=== PATIENT | female | born 1980 | race Caucasian/White ===

== ENCOUNTER 2017-03-06 12:37 | Outpatient (CLI) | payer OTHER ==
[~2017-03-06 12:37] MED LIST: Gadobenate Dimeglumine 529 MG/1 ML (20ML VIAL) ONE
--- NOTE | 2017-03-06 14:54 | MRI ---
MRI LUMBAR SPINE WITH AND WITHOUT IV CONTRAT: INDICATION: History of fall with acute low back symptoms and radicular symptoms. History of spinal fusion in 20 05. CONTRAST: 17 cc of MultiHance was administered. COMPARISON: Radiographs of the lumbar spine dated 02/27/17. FINDINGS: There is postsurgical change in the anterior lumbar interbody fusion at L5-S1. There is postsurgica l change of a laminectomy. There is postsurgical change of a right hemilaminectomy at L5-S1. There is an asymmetric to the left broad-based disk-osteophyte complex. Loss of disk space height in add ition to the osteophyte complex induces mild to moderate bilateral neural foraminal narrowing. At L4-5, there is a broad-based bulge inducing mild central canal narrowing with mild bilateral neur al foraminal narrowing. At L3-4, there is no appreciable central canal or neural foraminal narrowing. There is a mild broad -based bulge. At L2-3, there is a mild broad-based bulge without appreciable central canal or neural foraminal raymond rowing. At L1-L2, there is no appreciable central canal or neural foraminal narrowing. At T12-L1, there is no appreciable central canal or neural foraminal narrowing. No definite abnormal enhancement is demonstrated. No acute fracture is evident. Coronal images of the sacrum appear within normal limits. SI joints are normal-appearing. IMPRESSION: 1. Postoperative lumbar spine. 2. Mild to moderate bilateral neural foraminal narrowing at L5-S1. 3. Mild bilateral neural foraminal narrowing at L4-5 due to a broad-based bulge. POS: [facility]
== END 2017-03-06 12:38 | disposition home or self-care (01) ==
LOC: SCSMRI 12:37
PROVIDERS: ATTEND Family Medicine
DX: S32.10XA Unspecified fracture of sacrum, initial encounter for closed fracture (principal); M54.10 Radiculopathy, site unspecified; M51.26 Other intervertebral disc displacement, lumbar region; Z98.1 Arthrodesis status
CPT/HCPCS: 72158; A9579

== ENCOUNTER 2017-06-09 14:32 | Outpatient (CLI) | payer OTHER ==
--- NOTE | 2017-06-09 15:57 | MRI ---
MRI OF THE ABDOMEN WITHOUT AND WITH CONTRAST: COMPARISON: None. HISTORY: Right upper quadrant abdominal pain. Hepatic lesion. TECHNIQUE: Multiplanar, multisequence MR images were obtained of the abdomen without and with IV contrast. FINDINGS: There is a well-circumscribed focus of high T2 signal in the anterior aspect of the left lobe of the liver measuring 1.2 cm in greatest dimension. After the administration of contrast, this lesion demo nstrates peripheral puddling and gradual fill-in on the delayed images consistent with a hemangioma. There is a small nonenhancing region of high T2 signal along the inferior edge of the liver and junior cent to the kidney. This may represent a small amount of fluid in Morison's pouch. The gallbladder has been removed. No biliary dilatation is seen. The kidneys, adrenal glands, splee n, and pancreas are unremarkable. No abdominal adenopathy is seen. No marrow signal abnormality is present. IMPRESSION: Hepatic hemangioma. POS: [facility]
== END 2017-06-09 14:33 | disposition home or self-care (01) ==
LOC: MRI 14:32
PROVIDERS: ATTEND Internal Medicine Gastroenterology
DX: K52.9 Noninfective gastroenteritis and colitis, unspecified (principal); K76.9 Liver disease, unspecified; R10.11 Right upper quadrant pain; D18.03 Hemangioma of intra-abdominal structures
CPT/HCPCS: 74183

== ENCOUNTER 2017-08-10 14:07 | Outpatient (CLI) | payer OTHER | END 2017-08-10 14:08 | disposition home or self-care (01) | LOC: BICMAMMO 14:07 | PROVIDERS: ATTEND Family Medicine | DX: N63.10 Unspecified lump in the right breast, unspecified quadrant (principal); Z80.3 Family history of malignant neoplasm of breast | CPT/HCPCS: 77066; G0279 ==

== ENCOUNTER 2017-11-08 12:25 | Outpatient (CLI) | payer OTHER | END 2017-11-08 12:26 | disposition home or self-care (01) | LOC: BICMRI 12:25 | PROVIDERS: ATTEND Internal Medicine Gastroenterology | DX: K76.9 Liver disease, unspecified (principal); R10.11 Right upper quadrant pain; D18.03 Hemangioma of intra-abdominal structures; K76.89 Other specified diseases of liver; N28.1 Cyst of kidney, acquired; M51.24 Other intervertebral disc displacement, thoracic region | CPT/HCPCS: 74183; A9579 ==

== ENCOUNTER 2018-01-17 08:20 | Outpatient (CLI) | payer OTHER ==
--- NOTE | 2018-01-17 11:20 | MRI ---
MRI THORACIC SPINE WITHOUT CONTRAST: HISTORY: Thoracic spine pain. COMPARISON: None. TECHNIQUE: Thoracic spine MRI is performed without intravenous Gadolinium administration. Multisequential, mult iplanar imaging is performed. FINDINGS: Appropriate T1 marrow signal intensity of the thoracic vertebrae. Thoracic spine vertebral body heig ht is maintained. There is no fracture. There is no significant STIR hyperintensity to suggest vert ebral body edema or ligamentous injury. The visualized mediastinum and lung parenchymal are unremarkable. T2 hyperintensity in the liver is incompletely evaluated. The thoracic aorta has an overall normal size and signal intensity. No evidence of cord expansion. No evidence of cord atrophy. The conus medullaris terminates beyond the inferior aspect of T12. T1-T2/T2-T3: No significant central canal stenosis or foraminal narrowing. T3-T4: Small central and right paracentral disk deforms the thecal sac and deforms the right paracen tral cord. Mild central canal stenosis. No cord signal abnormality. T4-T5: Small right paracentral disk abuts the thecal sac and minimally deforms the right hemicord. No cord signal abnormality. T5-T6: Minimal right paracentral disk without significant central canal stenosis. T6-T7/T7-T8: No significant central canal stenosis. Minimal disk bulges. T8-T9: Central/right paracentral disk bulge effaces the ventral thecal sac and abuts the cord. Ther e is mild deformity of the cord. Mild to moderate stenosis. T9-T10/T10-T11/T11-T12/T12-L1: No significant central canal stenosis. Throughout the thoracic spine, the neural foramina are patent. IMPRESSION: Degenerative change of the thoracic spine, as above. The greatest degree of mass effect is at the T8 -T9 level, secondary to disk material. POS: [facility]
--- NOTE | 2018-01-17 11:50 | MRI ---
MRI LUMBAR SPINE WITH AND WITHOUT CONTRAST: HISTORY: Lumbar disk degeneration. Right leg and back pain. Right toe numbness. COMPARISON: 03/06/2017 TECHNIQUE: MRI lumbar spine is performed without intravenous Gadolinium administration. Multisequential, multip lanar imaging is performed. FINDINGS: Appropriate T1 marrow signal intensity of the lumbar vertebrae. Lumbar spine vertebral body height i s maintained. There is no fracture. No significant STIR hyperintensity to suggest vertebral body ed jefferson or ligamentous injury. There are type 1 and type 2 modic changes involving the inferior endplate of L5 and the superior endplate of S1. Associated disk prosthesis and fusion hardware at L5-S1. Po st contrast images do not demonstrate any abnormal enhancement within the thecal sac, including the c auda equina or conus medullaris. No abnormal enhancement of the lumbar vertebrae. The conus medullaris terminates at the mid L1 level. T12-L1: Adequate disk hydration. No significant central canal stenosis or foraminal narrowing. L1-L2: Adequate disk hydration. No significant central canal stenosis or foraminal narrowing. L2-L3: Adequate disk hydration. No significant central canal stenosis or foraminal narrowing. L3-L4: Adequate disk hydration. Minimal mass effect upon the thecal sac. Mild central canal stenos is due to disk material and posterior element hypertrophy. The neural foramina are patent. L4-L5: Adequate disk hydration. Generalized disk bulge. Ligamentum flavum thickening and facet hyp ertrophy result in minimal central canal stenosis. Mild right foraminal narrowing. The left neural foramen is patent. L5-S1: There appears to be a posterior central disk protrusion with disk material encroaching upon b oth subarticular zones. Disk material abuts but does not obscure either traversing S1 nerve root. N o significant stenosis of the thecal sac. The right neural foramen is patent. Mild left neural fora randi narrowing. There is a right hemilaminectomy defect at L5-S1. No significant enhancing scar tissues. IMPRESSION: Post fusion changes at L5-S1. No high grade central canal stenosis or high grade neural foraminal na rrowing. POS: [facility]
== END 2018-01-17 08:21 | disposition home or self-care (01) ==
LOC: MRI 08:20
PROVIDERS: ATTEND Neurological Surgery
DX: M51.36 Other intervertebral disc degeneration, lumbar region (principal); M47.894 Other spondylosis, thoracic region; Z98.1 Arthrodesis status
CPT/HCPCS: 72146; 72158

== ENCOUNTER 2019-10-10 09:15 | Outpatient (CLI) | payer OTHER ==
--- NOTE | 2019-10-10 16:08 | CT ---
CT ABDOMEN AND PELVIS WITH IV CONTRAST: Oral contrast was administered. Multiplanar reconstruction. INDICATION: Weight loss. COMPARISON: Comparison is made to CT abdomen and pelvis 06/03/2016. FINDINGS: The lung bases are clear. Liver is unremarkable. Low-density focus in the superior liver under the dome of the diaphragm is st able. Another tiny focus in the mid right lobe which is subcentimeter is stable. Hepatic hemangioma was described on MRI of abdomen of 11/08/2017. Spleen and pancreas are unremarkable. Evidence of prior gastric surgery with numerous omega at the EG junction and upper gastric fundus. Adrenal glands are normal. Kidneys unremarkable. Small bowel loops appear normal. Colon is unremarkable. The terminal ileum appears unremarkable. N o mass or adenopathy. Aorta unremarkable. Review of osseous structures again showed postoperative changes at L5-S1. There are numerous tiny lucent foci seen in the pelvis primarily involving both ileum. A few scatter ed lucent foci seen in the visualized vertebral bodies. When comparison is made to the 2017 exam, th ere were a few lucent foci in the ileum; however, they appear more numerous today. IMPRESSION: 1. Stable low-density lesions in the liver which have been previously described. 2. No acute intraabdominal process. 3. Nonspecific lucent foci seen in the osseous structures most prominent in the iliac bones bilatera lly. This is very nonspecific; however, recommend consideration for serum electrophoresis to rule ou t multiple myeloma. POS: [facility]
== END 2019-10-10 09:16 | disposition home or self-care (01) ==
LOC: SCSCT 09:15
PROVIDERS: ATTEND Family Medicine
DX: R63.4 Abnormal weight loss (principal); K76.9 Liver disease, unspecified; R93.5 Abnormal findings on diagnostic imaging of other abdominal regions, including retroperitoneum
CPT/HCPCS: 74177

== ENCOUNTER 2019-11-04 03:33 | Outpatient (CLI) | payer OTHER | END 2019-11-04 03:34 | disposition home or self-care (01) | LOC: ERS 03:33 | PROVIDERS: ATTEND Specialist | DX: Z01.812 Encounter for preprocedural laboratory examination (principal); Z11.59 Encounter for screening for other viral diseases; Z98.84 Bariatric surgery status | CPT/HCPCS: 87635; U0003 ==

== ENCOUNTER 2019-11-06 08:28 | Outpatient (CLI) | payer OTHER ==
--- NOTE | 2019-11-06 10:03 | RAD ---
Upper GI single column HISTORY: Weight loss. Prior bariatric surgery. FINDINGS: Single column contrast evaluation shows normal anatomic appearance of the esophagus. Postoperative changes of the stomach are consistent with prior gastric sleeve procedure. There is no evidence of obstruction or leak. Small amount of oral contrast extended into the esophagus with patient supine. Duodenal bulb, remainder of the duodenum, and the proximal small bowel are unremarkable. Mucosal dl jesus of the partially visualized jejunum is within normal limits. IMPRESSION : Prior gastric sleeve procedure without evidence of complication. Small amount of gastroesophageal reflux.
== END 2019-11-06 08:29 | disposition home or self-care (01) ==
LOC: RAD 08:28
PROVIDERS: ATTEND Specialist
DX: Z48.815 Encounter for surgical aftercare following surgery on the digestive system (principal); K21.9 Gastro-esophageal reflux disease without esophagitis; Z98.84 Bariatric surgery status
CPT/HCPCS: 74246

== ENCOUNTER 2019-11-15 10:00 | Outpatient (CLI) | payer OTHER | END 2019-11-15 10:01 | disposition home or self-care (01) | LOC: DTY/OP 10:00 | PROVIDERS: ATTEND Specialist | DX: Z48.815 Encounter for surgical aftercare following surgery on the digestive system (principal); Z98.84 Bariatric surgery status | CPT/HCPCS: 97802 ==

== ENCOUNTER 2019-12-13 14:30 | Outpatient (CLI) | payer OTHER ==
--- NOTE | 2019-12-13 16:59 | MRI ---
EXAM: MRI thoracic spine without and with contrast HISTORY: Back pain for several months COMPARISON: None TECHNIQUE: Multiplanar multisequence MR images were obtained of the thoracic spine without and with c ontrast. FINDINGS: The vertebral bodies and intervertebral discs demonstrate normal height and alignment without fractur e or subluxation. The visualized cord demonstrates normal signal throughout. A 6 mm focus of high T2 signal in the right lower liver appears to demonstrate enhancement and may re present a small hemangioma. The other prevertebral and paraspinal soft tissues are unremarkable. No paraspinal soft tissue abnormality is seen. No abnormal enhancement is seen on this exam. T1/2: No significant posterior bulge or protrusion. No posterior facet arthrosis. No central canal stenosis. No neural foraminal stenosis. T2/3: No significant posterior bulge or protrusion. No posterior facet arthrosis. No central canal stenosis. No neural foraminal stenosis. T3/4: There is a small disc osteophyte complex. No posterior facet arthrosis. Mild central canal st enosis. No neural foraminal stenosis. T4/5: There is a small disc osteophyte complex. No posterior facet arthrosis. Minimal central canal stenosis. No neural foraminal stenosis. T5/6: No significant posterior bulge or protrusion. No posterior facet arthrosis. No central canal stenosis. No neural foraminal stenosis. T6/7: No significant posterior bulge or protrusion. No posterior facet arthrosis. No central canal stenosis. No neural foraminal stenosis. T7/8: There is a small left paracentral protrusion. No posterior facet arthrosis. No central canal stenosis. No neural foraminal stenosis. T8/9: There is a small central protrusion. No posterior facet arthrosis. Mild central canal stenosi s. No neural foraminal stenosis. T9/10: No significant posterior bulge or protrusion. No posterior facet arthrosis. No central canal stenosis. No neural foraminal stenosis. T10/11: No significant posterior bulge or protrusion. No posterior facet arthrosis. No central nehemiah l stenosis. No neural foraminal stenosis. T11/12: No significant posterior bulge or protrusion. No posterior facet arthrosis. No central nehemiah l stenosis. No neural foraminal stenosis. T12/L1: No significant posterior bulge or protrusion. No posterior facet arthrosis. No central nehemiah l stenosis. No neural foraminal stenosis. IMPRESSION: Mild degenerative changes of the thoracic spine as above.
--- NOTE | 2019-12-13 17:08 | MRI ---
EXAM: MRI lumbar spine without and with contrast HISTORY: Acute low back pain COMPARISON: 01/17/2018 TECHNIQUE: Multiple planar multisequence MR images were obtained of the lumbar spine without and with contrast. FINDINGS: The patient is status post fusion of L5 and S1 with anterior hardware. A right laminectomy has also b een performed at L5. The vertebral bodies and remaining intervertebral discs demonstrate normal height and alignment witho ut fracture or subluxation. The patient has congenitally short pedicles. The prevertebral and paraspinal soft tissues are unremarkable. There are marrow signal changes surrounding the L5/S1 site of fusion. These are stable compared to th e prior exam. The conus medullaris terminates normally at L1. A small amount of enhancement is seen in the right paraspinal soft tissues from surgery. T12/L1: No significant posterior bulge or protrusion. No posterior facet arthrosis. No central nehemiah l stenosis. No neural foraminal stenosis L1/2: No significant posterior bulge or protrusion. No posterior facet arthrosis. No central canal stenosis. No neural foraminal stenosis L2/3: No significant posterior bulge or protrusion. No posterior facet arthrosis. No central canal stenosis. No neural foraminal stenosis L3/4: No significant posterior bulge or protrusion. No posterior facet arthrosis. No central canal stenosis. Mild bilateral neural foraminal stenosis secondary to congenitally short pedicles. L4/5: No significant posterior bulge or protrusion. No posterior facet arthrosis. No central canal stenosis. Moderate bilateral neural foraminal stenosis secondary to congenitally short pedicles. L5/S1: No significant posterior bulge or protrusion. Mild bilateral posterior facet arthrosis. No c entral canal stenosis. Moderate bilateral neural foraminal stenosis secondary to congenitally short pedicles. IMPRESSION: Degenerative changes of the lumbar spine as above.
== END 2019-12-13 14:31 | disposition home or self-care (01) ==
LOC: SCSMRI 14:30
PROVIDERS: ATTEND Physician Assistant
DX: M54.6 Pain in thoracic spine (principal); M54.5 Low back pain; M47.816 Spondylosis without myelopathy or radiculopathy, lumbar region; M47.814 Spondylosis without myelopathy or radiculopathy, thoracic region
CPT/HCPCS: 72157; 72158

== ENCOUNTER 2020-02-03 22:25 | Observation (INO) | payer OTHER ==
[~2020-02-03 22:25] MED LIST changes: -Gadobenate Dimeglumine 529 MG/1 ML (20ML VIAL) ONE; +Iopamidol-370 76% 500 ML 1 ML ONE
[2020-02-03] MEDS ORDERED: Piperacillin/Tazobactam 4.5 GM VIAL ONE (23:16)
[2020-02-03 23:30] LABS: #Eosinphils 0.1 thou/uL (0.0-0.7); #Lymphocytes 1.6 thou/uL (1.20-3.40); #Monocytes 0.5 thou/uL (0.11-0.59); #Neutrophils 5.7 thou/uL (1.40-6.50); %Basophils 0.4 % (0.0-1.0); %Eosinophils 0.8 % (0.0-10.0); %Lymphocytes 20.7 % (21.0-51.0); %Monocytes 6.4 % (0.0-10.0); %Neutrophils 71.8 % (42.0-75.0); Hemoglobin 11.6 g/dL (12.0-16.0); Mean Corpuscular Hemoglobin 31.4 pg (27.0-31.0); Mean Corpuscular Volume 95.1 fL (78.0-98.0); Mean Platelet Volume 7.5 fL (7.4-10.4); Platelet Count 350 thou/uL (130-400); RBC Distribution Width 10.6 % (11.5-14.5); Red Blood Cell (RBC) Count 3.68 mill/uL (4.20-5.40)
[2020-02-03 23:33] LABS: Bacteria/HPF None Seen HPF (None Seen); Bilirubin Negative (Negative); Blood, Urine Negative (Negative); Clarity Clear (Clear); Glucose, Urine (Dipstick) Normal (Negative); Ketone, Urine Negative (Negative); Leukocyte 75 Leu/uL (Negative); Mucous/LPF 1+ LPF (<2+); Nitrite Negative (Negative); Protein, Urine (Dipstick) Negative (Neg-Trace); RBC/HPF 0-3 HPF (0-3); Specific Gravity, Urine 1.018 (1.002-1.036); Urobilinogen Normal mg/dL (Less than 2); pH, Urine 5.5 (5.0-9.0)
[2020-02-03 23:46] LABS: ALT (SGPT) 10 U/L (8-55); AST (SGOT) 16 U/L (5-34); Albumin 3.7 g/dL (3.5-5.0); Alkaline Phosphatase 98 U/L (40-110); Anion Gap 12 mmol/L (10-20); BUN (Urea Nitrogen) 10 mg/dL (7.0-18.7); Bilirubin, Total 0.2 mg/dL (0.2-1.2); Calc. Creatinine Clearance 0 mL/min (70-130); Calcium 9.3 mg/dL (7.8-10.44); Carbon Dioxide 28 mmol/L (22-29); Chloride 105 mmol/L (98-107); Estimated GFR-MDRD 82; Globulin 3.3 g/dL (2.4-3.5); Glucose 95 mg/dL (70-105); Potassium 4.2 mmol/L (3.5-5.1); Sodium 141 mmol/L (136-145)
--- NOTE | 2020-02-04 01:01 | PDOC.HHP ---
Hospitalist HPI - History of Present Illness flank pain, UTI History of Present Illness: Ms. Yeung is a 39F with a PMHx of gastric sleeve, spinal fusion, anxiety who presents for flank pain and UTI. Pt reports 3 week gradual onset of R flank pain associated with fevers and night sweats. Fevers and night sweats have been intermittent. Pt reports her PCP ordered a UA which was positive last week and she was started on Cipro. PCP then suggested she present to the ED for IV abx since cultures revealed multi-drug resistant E. coli. Pt endorses nausea associated with pain. Denies chest pain, SOB, abdominal pain. Denies dysuria, but has noted her urine to be cloudy and dark. Also notes a small increase in frequency. Denies hematuria. Has a history of prior UTIs as a child, but none as an adult. Of note pt recently tested for COVID and was negative x2. No respiratory symptoms. Denies numbness/weakness. In ED workup revealed WBC of 8.0, H/H of 11.6/35.0, lactic acid of 1.1. Glucose 95. BUn/Cr 10/.078. UA showed leukocytes with 11-20 WBCs. Pt received IV zosyn and 1L NS. Vital signs: 130/84, 79, 18, 98.7, 98% on RA. Hospitalist ROS - Review of Systems Constitutional: reports: fever, sweats. denies: chills, weakness, malaise, other Eyes: denies: pain, vision change, conjunctivae inflammation, eyelid inflammation, redness, other ENT: denies: ear pain, ear discharge, nose pain, nose discharge, nose congestion , mouth pain, mouth swelling, throat pain, throat swelling, other Respiratory: denies: cough, dry, shortness of breath, hemoptysis, SOB with excertion, pleuritic pain, sputum, wheezing, other Cardiovascular: denies: chest pain, palpitations, orthopnea, paroxysmal noc. dyspnea, edema, light headedness, other Gastrointestinal: reports: nausea. denies: vomiting, abdominal pain, diarrhea, constipation, melena, hematochezia, other Genitourinary: reports: frequency. denies: dysuria, incontinence, hematuria, retention, other Musculoskeletal: reports: back pain. denies: neck pain, shoulder pain, arm pain , hand pain, leg pain, foot pain, other Skin: denies: rash, lesions, young, bruising, other Neurological: denies: weakness, numbness, incoordination, change in speech, confusion, seizures, other - Medication Medications: Home Medications: lexapro 10 mg daily Allergies: Sulfa drugs Hospitalist History - Past Medical History Psych: reports: Anxiety - Past Surgical History Other Surgical History: Gastric sleeve, appendectomy, hysterectomy, L5-S1 fusion - Social History Smoking Status: Former smoker Tobacco Type: cigarettes Alcohol: reports: None Drugs: reports: none Living Situation: With Family Activity level: independent ambulation - Exam General Appearance: NAD, awake alert Eye: PERRL, anicteric sclera ENT: normocephalic atraumatic, no oropharyngeal lesions, moist mucosa Neck: supple, symmetric, no JVD, no thyromegaly, no lymphadenopathy, no carotid bruit Heart: RRR, no murmur, no gallops, no rubs, normal peripheral pulses Respiratory: CTAB, no wheezes, no rales, no ronchi, normal chest expansion, no tachypnea, normal percussion Gastrointestinal: soft, non-tender, non-distended, normal bowel sounds, no palpable masses, no hepatomegaly, no splenomegaly, no bruit Gastrointestinal - other findings: R CVA tenderness Extremities: no cyanosis, no clubbing, no edema Skin: normal turgor, no lesions, no rashes Neurological: cranial nerve grossly intact, normal sensation to touch, no weakness, no focal deficits, no new deficit Musculoskeletal: normal tone, normal strength, no muscle wasting Psychiatric: normal affect, normal behavior, A&O x 3 Hospitalist Results - Labs Result Diagrams: 02/03/20 22:59 02/03/20 22:59 Lab results: WBC 8.0 thou/uL (4.8-10.8) 02/03/20 22:59 Hgb 11.6 g/dL (12.0-16.0) L 02/03/20 22:59 Hct 35.0 % (36.0-47.0) L 02/03/20 22:59 MCV 95.1 fL (78.0-98.0) 02/03/20 22:59 Plt Count 350 thou/uL (130-400) 02/03/20 22:59 Neutrophils % 71.8 % (42.0-75.0) 02/03/20 22:59 Sodium 141 mmol/L (136-145) 02/03/20 22:59 Potassium 4.2 mmol/L (3.5-5.1) 02/03/20 22:59 Chloride 105 mmol/L (98-107) 02/03/20 22:59 Carbon Dioxide 28 mmol/L (22-29) 02/03/20 22:59 BUN 10 mg/dL (7.0-18.7) 02/03/20 22:59 Creatinine 0.78 mg/dL (0.6-1.1) 02/03/20 22:59 Glucose 95 mg/dL (70-105) 02/03/20 22:59 Lactic Acid 1.1 mmol/L (0.5-2.2) 02/03/20 23:06 Calcium 9.3 mg/dL (7.8-10.44) 02/03/20 22:59 Total Bilirubin 0.2 mg/dL (0.2-1.2) 02/03/20 22:59 AST 16 U/L (5-34) 02/03/20 22:59 ALT 10 U/L (8-55) 02/03/20 22:59 Alkaline Phosphatase 98 U/L (40-110) 02/03/20 22:59 Serum Total Protein 7.0 g/dL (6.0-8.3) 02/03/20 22:59 Albumin 3.7 g/dL (3.5-5.0) 02/03/20 22:59 Urine Ketones Negative mg/dL (Negative) 02/03/20 22:38 Urine Blood Negative (Negative) 02/03/20 22:38 Urine Nitrite Negative (Negative) 02/03/20 22:38 Ur Leukocyte Esterase 75 Rosa/uL (Negative) A 02/03/20 22:38 Urine RBC 0-3 HPF (0-3) 02/03/20 22:38 Urine WBC 11-20 HPF (0-3) A 02/03/20 22:38 Ur Squamous Epith Cells 7-10 HPF (0-3) A 02/03/20 22:38 Urine Bacteria None Seen HPF (None Seen) 02/03/20 22:38 - Radiology Interpretation CT scan - abdomen Status: image reviewed by me (CT abdomen: no stones per my read, official radiologist read pending) Hospitalist H&P A/P - Problem (1) Pyelonephritis Code(s): N12 - TUBULO-INTERSTITIAL NEPHRITIS, NOT SPCF ACUTE OR CHRONIC Status: Acute (2) Anxiety Code(s): F41.9 - ANXIETY DISORDER, UNSPECIFIED Status: Acute (3) Night sweats Code(s): R61 - GENERALIZED HYPERHIDROSIS Status: Acute - Plan Plan: Pyelonephritis: 39F with pmhx of gastric sleeve, L5-S1 fusion, hysterectomy, and anxiety who presents for 3 week gradual onset of R flank pain associated with fevers, night- sweats, and dark, cloudy urine. UA positive, Ucx showed multi-drug resistant E. Coli sensitive to zosyn, resistant to cipro which she was given as an outpatient. R CVA tenderness. No leukocytosis. Pt afebrile in ED. Lactic acid 1.1. BUN/Cr 10/.086. CT scan on my review did not show any obvious stones or abscess. Started on Zosyn in ED. PLAN: -Continue Zosyn IV -BCx -IVF -I/Os -Tylenol prn fever Night Sweats: 3 weeks of soaking night sweats. COVID serology negative. Likely 2/2 pyelonephritis. Will obtain additional testing. PLAN: -CXR -TSH -CRP, ESR, HIV Ab -BCx, Trend fever curve Anxiety: History of anxiety. Continue home lexapro 10 mg daily. DVT Prophylaxis: SCDs FULL CODE Case discussed with attending physician, Dr. Stover who is in agreement with assessment and plan.
[2020-02-04] MEDS ORDERED: Acetaminophen 500 MG TAB ONE (01:18)
[2020-02-04] MEDS ORDERED: Acetaminophen 325 MG TAB PO PRN (01:39)
[2020-02-04 02:33] VITALS: BMI 20.2
[2020-02-04 05:19] LABS: #Eosinphils 0.1 thou/uL (0.0-0.7); #Lymphocytes 1.9 thou/uL (1.20-3.40); #Monocytes 0.5 thou/uL (0.11-0.59); #Neutrophils 3.7 thou/uL (1.40-6.50); %Basophils 0.5 % (0.0-1.0); %Eosinophils 1.2 % (0.0-10.0); %Lymphocytes 30.4 % (21.0-51.0); %Monocytes 7.5 % (0.0-10.0); %Neutrophils 60.4 % (42.0-75.0); Hemoglobin 10.1 g/dL (12.0-16.0); Mean Corpuscular HGB CONC 32.6 g/dL (32.0-36.0); Mean Corpuscular Hemoglobin 30.9 pg (27.0-31.0); Mean Corpuscular Volume 94.9 fL (78.0-98.0); Mean Platelet Volume 7.3 fL (7.4-10.4); Platelet Count 280 thou/uL (130-400); RBC Distribution Width 10.6 % (11.5-14.5); Red Blood Cell (RBC) Count 3.26 mill/uL (4.20-5.40); White Blood Cell (WBC) Count 6.2 thou/uL (4.8-10.8)
[2020-02-04 05:47] LABS: ALT (SGPT) 8 U/L (8-55); AST (SGOT) 10 U/L (5-34); Albumin 3.1 g/dL (3.5-5.0); Alkaline Phosphatase 75 U/L (40-110); Anion Gap 10 mmol/L (10-20); BUN (Urea Nitrogen) 9 mg/dL (7.0-18.7); Bilirubin, Total 0.2 mg/dL (0.2-1.2); Calc. Creatinine Clearance 105 mL/min (70-130); Calcium 8.5 mg/dL (7.8-10.44); Carbon Dioxide 27 mmol/L (22-29); Chloride 108 mmol/L (98-107); Estimated GFR-MDRD Greater than 90; Globulin 2.4 g/dL (2.4-3.5); Glucose 81 mg/dL (70-105); Potassium 3.7 mmol/L (3.5-5.1); Protein, Total 5.5 g/dL (6.0-8.3); Sodium 141 mmol/L (136-145)
[2020-02-04 06:01] LABS: HIV (1/2) Antibody/Antigen Non-Reactive (NonReactive); HIV 1/2 INDEX 0.15 S/CO (<1.00); Thyroid Stimulating Hormone 1.9858 uIU/mL (0.35-4.94)
[2020-02-04] MEDS: Piperacillin/Tazobactam 3.375 GM in Sodium Chloride 0.9% 100 ML IVPB SCH ×3 (06:21→17:48)
--- NOTE | 2020-02-04 07:46 | CT ---
CT ABDOMEN AND PELVIS PERFORMED WITH INTRAVENOUS CONTRAST ENHANCEMENT: HISTORY: Ongoing fevers. UTI. History of appendectomy, cholecystectomy, and gastric sleeve procedure. Also a history of back surgery. COMPARISON: A 10/10/2019 exam. FINDINGS: The lung bases are clear of infiltrates. The exam was taken in a somewhat arterial phase. Hypodensity seen within the dome of the liver is mo re difficult to visualize due to the technique, but I do not feel there is any interval change. The spleen is within normal limits. Postoperative changes in the stomach region are noted. The pancreas region is unremarkable and the gallbladder has been removed. Right and left adrenal glands and right and left kidneys are normal in size. There is no significant periaortic or mesenteric adenopathy. There is a moderate amount of stool present within the colon. CT OF PELVIS PERFORMED WITH CONTRAST ENHANCEMENT: There is no adenopathy, mass, or free fluid. Small lucent areas within the iliac bones bilaterally are stable. Postoperative changes of the spine are noted. IMPRESSION: Stable overall exam. No acute findings of the abdomen or pelvis. POS: [facility]
[2020-02-04] MEDS: Escitalopram Oxalate 10 mg Tablet PO SCH (08:20)
[2020-02-04] MEDS: Ondansetron PF 4 MG/2 ML Vial IVP PRN ×2 (10:18→20:06)
--- NOTE | 2020-02-04 10:18 | RAD ---
EXAM: Chest 2 views: HISTORY: Night sweats COMPARISON: 12/12/2019 FINDINGS: There is a normal-sized cardiomediastinal silhouette. Surgical clips are seen in the left upper quad rant of the abdomen. There is no evidence of consolidation, mass, or pleural effusion. No acute osseous abnormality. IMPRESSION: No evidence of acute cardiopulmonary disease
--- NOTE | 2020-02-04 11:17 | PDOC.BPN ---
- Brief Progress Note Encounter Date: 02/04/20 Encounter Time: 10:45 Patient was seen and examined this morning. She states that she has had a decrease in her back pain but still had to use Tylenol for relief. She also states that she had some nausea which Zofran helped. The nausea is not a new symptom as she has had it intermittently since her gastric sleeve surgery. Discussed her test results and plan of care. Zosyn will be continued as it is covered from the culture that was collected in office. We will continue on IV antibiotics today. Patient states she gets easily dehydrated, encouraged p.o. intake. We will continue to monitor labs in the morning. If p.o. intake is not enough to maintain kidney function may place on IV fluids. As of this morning her kidney function was back to her baseline. Patient's exam unremarkable other than mild CVA tenderness to the right. Brief progress note as patient was seen and examined after midnight last night.
[2020-02-05] MEDS: Piperacillin/Tazobactam 3.375 GM in Sodium Chloride 0.9% 100 ML IVPB SCH ×3 (00:25→12:07)
[2020-02-05 05:45] LABS: #Eosinphils 0.1 thou/uL (0.0-0.7); #Lymphocytes 2.1 thou/uL (1.20-3.40); #Monocytes 0.4 thou/uL (0.11-0.59); #Neutrophils 3.1 thou/uL (1.40-6.50); %Basophils 0.7 % (0.0-1.0); %Eosinophils 1.1 % (0.0-10.0); %Lymphocytes 36.6 % (21.0-51.0); %Monocytes 7.2 % (0.0-10.0); %Neutrophils 54.4 % (42.0-75.0); Hemoglobin 10.7 g/dL (12.0-16.0); Mean Corpuscular HGB CONC 32.3 g/dL (32.0-36.0); Mean Corpuscular Hemoglobin 30.8 pg (27.0-31.0); Mean Corpuscular Volume 95.4 fL (78.0-98.0); Mean Platelet Volume 7.3 fL (7.4-10.4); Platelet Count 301 thou/uL (130-400); RBC Distribution Width 10.7 % (11.5-14.5); Red Blood Cell (RBC) Count 3.47 mill/uL (4.20-5.40); White Blood Cell (WBC) Count 5.7 thou/uL (4.8-10.8)
[2020-02-05 06:04] LABS: ALT (SGPT) 12 U/L (8-55); AST (SGOT) 11 U/L (5-34); Albumin 3.1 g/dL (3.5-5.0); Alkaline Phosphatase 82 U/L (40-110); Anion Gap 13 mmol/L (10-20); BUN (Urea Nitrogen) 8 mg/dL (7.0-18.7); Bilirubin, Total 0.2 mg/dL (0.2-1.2); Calc. Creatinine Clearance 91 mL/min (70-130); Calcium 8.7 mg/dL (7.8-10.44); Carbon Dioxide 26 mmol/L (22-29); Chloride 108 mmol/L (98-107); Estimated GFR-MDRD 78; Globulin 2.4 g/dL (2.4-3.5); Glucose 84 mg/dL (70-105); Potassium 4.6 mmol/L (3.5-5.1); Protein, Total 5.5 g/dL (6.0-8.3); Sodium 142 mmol/L (136-145)
[2020-02-05] MEDS: Escitalopram Oxalate 10 mg Tablet PO SCH (08:03)
[2020-02-05] MEDS: Ondansetron PF 4 MG/2 ML Vial IVP PRN ×2 (08:03→12:09)
[2020-02-05 16:54] VITALS: BP 101/67; TEMP 98
--- NOTE | 2020-02-06 13:41 | DIS ---
DATE OF ADMISSION: 02/04/2020 DATE OF DISCHARGE: 02/05/2020 DISCHARGE DISPOSITION/FOLLOWUP: The patient was discharged home. The patient was seen and examined on day of discharge. She denies any new complaints. INPATIENT CONSULTS: None. CLINICAL COURSE: The patient is a 39-year-old female with past medical history of gastric sleeve, spinal fusion, anxiety, who presented for flank pain and UTI. She had a three-week gradual onset of the right flank pain associated with fevers and night sweats. She had a UA completed at her PCP and also a urine culture completed. Urine culture showed positive for E coli, was susceptible to the Zosyn. She was started on IV Zosyn during her hospital stay. The next day, she was feeling better, although just a little tired still. She was discharged home with oral antibiotics and antiemetics as some of the antibiotics made her nauseous. She was advised to continue her fluid intake. FINAL DIAGNOSIS: Pyelonephritis. DISCHARGE MEDICATIONS: Continue home medications. We will start Macrobid 100 mg twice a day for 10 days and Zofran 4 mg as needed. DISCHARGE INSTRUCTIONS: The patient was encouraged to increase her fluid intake and to take antibiotics through the full course of their prescription. She was also encouraged to follow up with any new or worsening symptoms. TIME SPENT: Total time coordinating the discharge of this patient was 25 minutes. Job ID: [id number]
== END 2020-02-05 17:54 | disposition home or self-care (01) ==
LOC: ERS 22:25 → T4-B 02-04 00:40
PROVIDERS: ADMIT Internal Medicine; ATTEND Internal Medicine
DX: N12 Tubulo-interstitial nephritis, not specified as acute or chronic (principal); F41.9 Anxiety disorder, unspecified; R61 Generalized hyperhidrosis; Z79.899 Other long term (current) drug therapy; Z87.891 Personal history of nicotine dependence; Z88.2 Allergy status to sulfonamides
CPT/HCPCS: 36415; 71046; 74177; 80053; 81003; 81015; 83605; 84443; 84550; 85025; 86140; 87040; 87086; 87389; 96365; 96366; 96375; 96376; G0378; J2405; J2543; J3490; Q9967

== ENCOUNTER 2020-04-27 11:49 | Outpatient (CLI) | payer OTHER ==
--- NOTE | 2020-04-27 12:48 | MMO ---
Bilateral MAMMO Bilat Screen [facility]. CLINICAL HISTORY: Patient is 40 years old and is seen for screening. The patient has the following OVARIAN and maternal grandmother. The patient has no personal history of cancer. VIEWS: The views performed were: bilateral craniocaudal with tomosynthesis and bilateral mediolateral oblique with tomosynthesis. FILMS COMPARED: The present examination has been compared to prior imaging studies performed at [facility] on 08/10/2017, and at [facility] on 08/10/2013 and 05/07/2015. This study has been interpreted with the assistance of computer-aided detection. MAMMOGRAM FINDINGS: There are scattered fibroglandular densities. There are no suspicious masses, suspicious calcifications, or new areas of architectural distortion. IMPRESSION: THERE IS NO MAMMOGRAPHIC EVIDENCE OF MALIGNANCY. A ROUTINE FOLLOW-UP MAMMOGRAM IN 1 YEAR IS RECOMMENDED. THE RESULTS OF THIS EXAM WERE SENT TO THE PATIENT. ACR BI-RADS Category 1 - Negative MAMMOGRAPHY NOTE: 1. A negative mammogram report should not delay a biopsy if a dominant of clinically suspicious mass is present. 2. Approximately 10% to 15% of breast cancers are not detected by mammography. 3. Adenosis and dense breasts may obscure an underlying neoplasm. Reported by: CITLALY BRADLEY MD Electonically Signed: [id number]
== END 2020-04-27 11:50 | disposition home or self-care (01) ==
LOC: BICMAMMO 11:49
PROVIDERS: ATTEND Family Medicine
DX: Z12.31 Encounter for screening mammogram for malignant neoplasm of breast (principal); Z85.43 Personal history of malignant neoplasm of ovary
CPT/HCPCS: 77063; 77067

== ENCOUNTER 2020-05-13 12:51 | Outpatient (CLI) | payer OTHER ==
--- NOTE | 2020-05-13 14:19 | ULT ---
ULTRASOUND LEFT LOWER EXTREMITY VENOUS DOPPLER: 05/13/20 HISTORY: Pain and edema. COMPARISON: None. FINDINGS: Real time nelson scale, color Doppler and spectral analysis of the left lower extremity venous system w as performed. The common femoral, femoral, proximal portions of the greater saphenous and deep femora l veins as well as the popliteal and posterior tibial veins are interrogated. Normal flow, augmentation and compression. Superficially, at the area of palpable abnormality there a ppears to be a superficial soft tissue hematoma with fluid degree level increased through transmissio n measuring up to 1.5 cm in size. This is just underneath the skin surface in the subcutaneous fat ou tside the muscle. IMPRESSION: 1. No deep venous thrombosis. 2. Well defined what appears to be a hematoma along the medial aspect of the popliteal area subc utaneous fat just underneath the skin surface measuring up to 1.5 cm in size. If this area does not d ecrease in size in the next two to three weeks, a follow-up MRI with and without contrast would be re commended. POS: [facility]
== END 2020-05-13 12:52 | disposition home or self-care (01) ==
LOC: BICULT 12:51
PROVIDERS: ATTEND Family Medicine
DX: M79.89 Other specified soft tissue disorders (principal)

== ENCOUNTER 2023-11-27 14:48 | Outpatient (CLI) | payer OTHER | END 2023-11-27 14:49 | disposition home or self-care (01) | LOC: BICMAMMO 14:48 | PROVIDERS: ATTEND Registered Nurse | DX: Z12.31 Encounter for screening mammogram for malignant neoplasm of breast (principal) | CPT/HCPCS: 77063; 77067 ==